=== PATIENT | male | born 1960 | race Caucasian/White ===

== ENCOUNTER 2020-12-19 11:05 | Observation (INO) | payer MEDICARE ==
[2020-12-19] MEDS ORDERED: BABY ASPIRIN 81 MG CHEW PO ONE (11:17)
[2020-12-19] MEDS ORDERED: NITRO-BID 2% UD PACKETS TOP ONE (11:18)
[2020-12-19] MEDS ORDERED: NITRO-BID 2% UD PACKETS ONE (11:23)
[2020-12-19 11:34] LABS: Absolute Neutrophil Ct (ANC) 4.83 (1.4-6.9); BASOPHIL % 0.3 % (0.0-0.4); Basophil (Absolute #) 0.03 (0-0.4); Eosinophil % 5.5 % (0.00-5.0); Eosinophil (Absolute #) 0.48 (0-0.5); Hematocrit 47.5 % (42-50); Hemoglobin 16.2 gm/dl (12.5-18.0); Lymphocyte (Absolute #) 2.33 (1.0-4.6); Lymphocytes % 26.7 % (24.0-44.0); Mean Cell Volume 85.1 fl (78-100); Mean Corpuscular Hgb Concent. 34.1 g/dl (32-36); Mean Platelet Volume 9.8 fl (7.5-11.0); Monocyte (Absolute #) 1.07 (0.0-1.3); Monocytes % 12.2 % (0.0-12.0); Neutrophil % 55.3 % (36.0-66.0); Platelet Count 246 K/mm3 (150-450); Red Blood Count 5.58 M/mm3 (4.1-5.6); Red Cell Distribution Width 13.7 % (11.5-14.0); White Blood Count 8.7 K/mm3 (4.0-10.5)
--- NOTE | 2020-12-19 11:39 | XRAY ---
Indication: Short of breath. Comparison: None Portable apical lordotic chest demonstrates normal heart and lungs. Bony thorax intact with mild degenerative changes.
[2020-12-19 12:05] LABS: ALBUMIN 4.5 g/dL (3.5-5.0); ALKALINE PHOSPHATASE 122 U/L (38-126); ANION GAP 13.3 MEQ/L (5-15); BLOOD UREA NITROGEN 21 mg/dL (9-20); CHLORIDE 104 mmol/L (98-107); Calcium 9.3 mg/dL (8.4-10.2); Carbon Dioxide 26 mmol/L (22-30); Creatinine 1 0.83 mg/dL (0.66-1.25); EST GLOMERULAR FILTRATION RATE > 60.0 ML/MIN; Glucose 110 mg/dL (74-106); Potassium 4.2 mmol/L (3.5-5.1); SGOT/AST 86 U/L (17-59); SGPT/ALT 95 U/L (0-50); SODIUM 139 mmol/L (137-145); Total Protein 7.4 g/dL (6.3-8.2)
--- NOTE | 2020-12-19 13:05 | ERPHSYRPT ---
- History of Present Illness Time Seen by Provider: 12/19/20 11:24 Historian: patient Exam Limitations: no limitations Patient Subjective Stated Complaint: Pt states "I went to pain management for the first time and they sent me here. My blood pressure is up and my chest is tight. I have also been sweaty." Triage Nursing Assessment: Pt presented alert and oriented X 3, skin pink, warm, diaphoretic. PT in no apparent respiratory distress. Pt resting comfortably on the bed. Physician History: 60 years old male with history of hypertension, chronic pain syndrome, hypothyroidism is sent in the ER from pain clinic for elevated blood pressure and chest tightness/pressure. Patient report he has a fist-like tightness feeling in the center of the chest for the last couple of weeks which comes and goes without any significant aggravating or relieving factors. Denies any associated palpitations or shortness of breath. Does not have any cardiac work- up done in the past. Timing/Duration: week(s) (2), intermittent, gradual onset, worse Activities at Onset: rest Quality: fullness, pressure Location: central Chest Pain Radiation: no radiation Severity of Pain-Max: moderate Severity of Pain-Current: moderate Modifying Factors: Improves With: nothing Associated Symptoms: denies symptoms Prior Chest Pain/Cardiac Workup: no prior chest pain, no prior cardiac workup Nitro Today/Relief: no nitro taken today Aspirin Treatment Today: no aspirin today Allergies/Adverse Reactions: No Known Drug Allergies Allergy (Verified 12/19/20 11:22) Home Medications: AMITRIPTYLINE HCL 50 mg Tab [AMITRIPTYLINE HCL 50 mg Tablet] 50 mg PO HS 12/19/20 [History] Carbamazepine 300 mg PO BID 12/19/20 [History] Celecoxib 100 mg [celeBREX 100 MG] 100 mg PO BID 12/19/20 [History] Levothyroxine Sodium [Levothyroxine] 50 mcg PO DAILY 12/19/20 [History] Magnesium Oxide [Magnesium] 400 mg PO BID 12/19/20 [History] Metformin HCl 500 mg [Glucophage 500 MG] 500 mg PO DAILY 12/19/20 [History] Naproxen Sodium 220 mg PO BID 12/19/20 [History] Omeprazole 20 mg PO DAILY 12/19/20 [History] Tapentadol HCl [Nucynta] 100 mg PO TID 12/19/20 [History] Hx Tetanus, Diphtheria Vaccination/Date Given: No Hx Influenza Vaccination/Date Given: No Hx Pneumococcal Vaccination/Date Given: No Immunizations Up to Date: Yes Travel Risk - International Travel Have you traveled outside of the country in past 3 weeks: No - Coronavirus Screening Are you exhibiting any of the following symptoms?: No Close contact with a COVID-19 positive Pt in past 14-21 Days: No - Vaccine Status Have you recieved a Covid-19 vaccination: No - Review of Systems Constitutional: No Symptoms Eyes: No Symptoms Ears, Nose, & Throat: No Symptoms Respiratory: No Symptoms Cardiac: Chest Pain Abdominal/Gastrointestinal: No Symptoms Genitourinary Symptoms: No Symptoms Musculoskeletal: Arthralgias, Back Pain Skin: No Symptoms Neurological: No Symptoms Psychological: No Symptoms Endocrine: No Symptoms Hematologic/Lymphatic: No Symptoms Immunological/Allergic: No Symptoms - Past Medical History Pertinent Past Medical History: Yes Neurological History: Migraines ENT History: No Pertinent History Cardiac History: No Pertinent History Respiratory History: No Pertinent History Endocrine Medical History: Diabetes Type II, Hypothyroidism Musculoskeletal History: Arthritis GI Medical History: GERD History: No Pertinent History Psycho-Social History: Anxiety Male Reproductive Disorders: No Pertinent History - Past Surgical History Past Surgical History: Yes Other Surgical History: tonsils - Social History Smoking Status: Former smoker Exposure to second hand smoke: No Drug Use: none Patient Lives Alone: Yes - Nursing Vital Signs Nursing Vital Signs: Initial Vital Signs Temperature 97.4 F 12/19/20 11:08 Pulse Rate 85 12/19/20 11:08 Respiratory Rate 22 12/19/20 11:08 Blood Pressure 169/120 12/19/20 11:08 O2 Sat by Pulse Oximetry 96 12/19/20 11:08 Pain Scale Pain Intensity 6 - Physical Exam General Appearance: no apparent distress, alert Eye Exam: PERRL/EOMI, eyes nml inspection Ears, Nose, Throat Exam: normal ENT inspection, TMs normal, pharynx normal Neck Exam: normal inspection, non-tender, supple, full range of motion Respiratory Exam: normal breath sounds, lungs clear Cardiovascular Exam: regular rate/rhythm, normal heart sounds Gastrointestinal/Abdomen Exam: soft, normal bowel sounds, No tenderness Back Exam: normal inspection, normal range of motion Extremity Exam: normal inspection, normal range of motion Neurologic Exam: alert, oriented x 3, cooperative Skin Exam: normal color, warm SpO2 Interpretation: normal SpO2: 94 O2 Delivery: Room Air - Course EKG Interpreted by Me: RATE (80), Sinus Rhythm, NORMAL AXIS, NORMAL INTERVALS, NORMAL QRS, Other (Nonspecific T wave changes) Ordered Tests: Active Orders 24 hr Category Date Time Status Bedrest with BRP/BSC ROUTINE Activity 12/19/20 15:16 Active Up With Assistance ROUTINE Activity 12/19/20 15:16 Active Brand Development Manager STAT Care 12/19/20 11:20 Completed Code Status Order ROUTINE Care 12/19/20 15:16 Active EKG-ER Only STAT Care 12/19/20 11:18 Completed Fall Protocol Q1H Care 12/19/20 15:16 Active IV Care Q6H Care 12/19/20 15:16 Active IV Insertion STAT Care 12/19/20 11:18 Completed POCT Glucose Check QAM Care 12/19/20 15:[address] in Observation ROUTINE Care 12/19/20 15:16 Active Rodney Allen, Apply ROUTINE Care 12/19/20 15:16 Active Weight,Daily 0600 Care 12/19/20 15:16 Active Consistent Carbohydrate Diet 1800 Calorie Diet 12/19/20 Dinner Active CHEST 1 VIEW (PORTABLE) Stat Exams 12/19/20 11:18 Completed CBC W DIFF AM.LAB Lab 12/20/20 04:00 Ordered CBC W DIFF Stat Lab 12/19/20 11:15 Completed CMP AM.LAB Lab 12/20/20 04:00 Ordered CMP Stat Lab 12/19/20 11:15 Completed NT PRO BNP Stat Lab 12/19/20 11:15 Completed TROPONIN Q3H Lab 12/19/20 11:15 Completed TROPONIN Q3H Lab 12/19/20 14:32 Completed TROPONIN Q3H Lab 12/19/20 17:13 Completed TROPONIN Q3H Lab 12/19/20 20:08 Completed TROPONIN Q3H Lab 12/19/20 23:30 Completed Medication Summary Generic Name Dose Route Start Last Admin Trade Name Freq PRN Reason Stop Dose Admin Acetaminophen 650 mg 12/19/20 15:16 12/19/20 16:26 Tylenol 325 Mg PO 01/18/21 15:15 650 mg Q4H PRN PRN Administration PAIN AND/OR FEVER Amitriptyline HCl 50 mg 12/19/20 22:00 12/19/20 23:21 Amitriptyline Hcl 50 Mg Tablet PO 01/18/21 21:59 50 mg HS ADRIÁN Administration Carbamazepine 300 mg 12/19/20 22:00 12/19/20 23:20 Tegretol 200 Mg PO 01/18/21 21:59 300 mg BID ADRIÁN Administration Insulin Human Lispro 0 unit 12/19/20 15:16 Humalog SQ 01/18/21 15:15 UD PRN HYPERGLYCEMIA Levothyroxine Sodium 50 mcg 12/20/20 10:00 Synthroid 50 Mcg PO 01/19/21 09:59 DAILY ADRIÁN Magnesium Oxide 400 mg 12/19/20 22:00 12/19/20 23:21 Mag-Ox 400 PO 01/18/21 21:59 400 mg BID ADRIÁN Administration Morphine Sulfate 4 mg 12/19/20 15:16 12/19/20 23:28 Morphine Sulfate 4 Mg Inj IV 12/24/20 15:15 4 mg Q4H PRN PRN Administration PAIN Pantoprazole Sodium 40 mg 12/20/20 10:00 Protonix 40mg Tablet PO 01/19/21 09:59 DAILY ADRIÁN Patient Own Med ( 0 each 12/19/20 22:00 12/19/20 23:21 Nucynta) PO 01/18/21 21:59 Not Given TID ADRIÁN Tramadol HCl 100 mg 12/19/20 17:51 Ultram 50 Mg PO 01/18/21 17:50 QID PRN PRN PAIN Discontinued Medications Generic Name Dose Route Start Last Admin Trade Name Freq PRN Reason Stop Dose Admin Albuterol/Ipratropium 3 ml 12/19/20 15:16 Duoneb 0.5-3 Mg/3 Ml Neb IH 01/18/21 15:15 Q4HPRN PRN SHORTNESS OF BREATH/WHEEZING Aspirin 324 mg 12/19/20 11:17 12/19/20 11:25 Baby Aspirin 81 Mg Chew PO 12/19/20 11:18 324 mg STAT ONE Administration Nitroglycerin 1 gm 12/19/20 11:18 12/19/20 11:24 Nitro-Bid 2% Ud Packets TOP 12/19/20 11:19 1 gm STAT ONE Administration Nitroglycerin Confirm 12/19/20 11:23 Nitro-Bid 2% Ud Packets Administered 12/19/20 11:24 Dose 1 gm .ROUTE .STK-MED ONE Pantoprazole Sodium 40 mg 12/20/20 10:00 Protonix 40 Mg Iv IV 01/19/21 09:59 Q24H10 [facility] Lab/Rad Data: Laboratory Result Diagrams 12/19/20 11:15 12/19/20 11:15 Laboratory Results 12/19/20 12/19/20 12/19/20 Range/Units 14:32 13:12 11:15 WBC (4.0-10.5) K/mm3 RBC (4.1-5.6) M/mm3 Hgb (12.5-18.0) gm/dl Hct (42-50) % MCV (78-100) fl MCH (26-32) pg MCHC (32-36) g/dl RDW (11.5-14.0) % Plt Count (150-450) K/mm3 MPV (7.5-11.0) fl Gran % (36.0-66.0) % Eos # (Auto) (0-0.5) Absolute Lymphs (auto) (1.0-4.6) Absolute Monos (auto) (0.0-1.3) Lymphocytes % (24.0-44.0) % Monocytes % (0.0-12.0) % Eosinophils % (0.00-5.0) % Basophils % (0.0-0.4) % Absolute Granulocytes (1.4-6.9) Basophils # (0-0.4) Sodium (137-145) mmol/L Potassium (3.5-5.1) mmol/L Chloride (98-107) mmol/L Carbon Dioxide (22-30) mmol/L Anion Gap (5-15) MEQ/L BUN (9-20) mg/dL Creatinine (0.66-1.25) mg/dL Estimated GFR ML/MIN Glucose (74-106) mg/dL Calcium (8.4-10.2) mg/dL Total Bilirubin (0.2-1.3) mg/dL AST (17-59) U/L ALT (0-50) U/L Alkaline Phosphatase (38-126) U/L Troponin I < 0.012 < 0.012 (0.000-0.034) ng/mL NT-Pro-B Natriuret Pep (0-900) pg/mL Serum Total Protein (6.3-8.2) g/dL Albumin (3.5-5.0) g/dL SARS-CoV-2 (PCR) NEGATIVE (NEGATIVE) 12/19/20 12/19/20 Range/Units 11:15 11:15 WBC 8.7 (4.0-10.5) K/mm3 RBC 5.58 (4.1-5.6) M/mm3 Hgb 16.2 (12.5-18.0) gm/dl Hct 47.5 (42-50) % MCV 85.1 (78-100) fl MCH 29.0 (26-32) pg MCHC 34.1 (32-36) g/dl RDW 13.7 (11.5-14.0) % Plt Count 246 (150-450) K/mm3 MPV 9.8 (7.5-11.0) fl Gran % 55.3 (36.0-66.0) % Eos # (Auto) 0.48 (0-0.5) Absolute Lymphs (auto) 2.33 (1.0-4.6) Absolute Monos (auto) 1.07 (0.0-1.3) Lymphocytes % 26.7 (24.0-44.0) % Monocytes % 12.2 H (0.0-12.0) % Eosinophils % 5.5 H (0.00-5.0) % Basophils % 0.3 (0.0-0.4) % Absolute Granulocytes 4.83 (1.4-6.9) Basophils # 0.03 (0-0.4) Sodium 139 (137-145) mmol/L Potassium 4.2 (3.5-5.1) mmol/L Chloride 104 (98-107) mmol/L Carbon Dioxide 26 (22-30) mmol/L Anion Gap 13.3 (5-15) MEQ/L BUN 21 H (9-20) mg/dL Creatinine 0.83 (0.66-1.25) mg/dL Estimated GFR > 60.0 ML/MIN Glucose 110 H (74-106) mg/dL Calcium 9.3 (8.4-10.2) mg/dL Total Bilirubin 0.60 (0.2-1.3) mg/dL AST 86 H (17-59) U/L ALT 95 H (0-50) U/L Alkaline Phosphatase 122 (38-126) U/L Troponin I (0.000-0.034) ng/mL NT-Pro-B Natriuret Pep 58.0 (0-900) pg/mL Serum Total Protein 7.4 (6.3-8.2) g/dL Albumin 4.5 (3.5-5.0) g/dL SARS-CoV-2 (PCR) (NEGATIVE) - Progress Progress: improved, re-examined Air Movement: good Progress Note: 12/19/20 13:04 Patient is elevated blood pressure and chest pressure/tightness. Is given aspirin, Nitropaste, on reevaluation feeling mild improvement. EKG showed sinus rhythm with no acute ST elevations. Has some nonspecific T wave changes. Initial troponin are negative. Chest x-ray negative for any acute ca rdiopulmonary findings. With his 2-week history of off and on chest pain and elevated pressure and no cardiac work-up in the past, patient would be admitted for trending cardiac enzyme and rule out [place]. Discussed with Dr. Matamoros and patient is admitted. Blood Culture(s) Obtained: No Antibiotics given: No Discussed with : Janessa Will see patient in: hospital (observation) Counseled pt/family regarding: lab results, diagnosis, need for follow-up, rad results - Departure Departure Disposition: Observation Clinical Impression: Chest pain, rule out acute myocardial infarction Condition: Stable Critical Care Time: No
[2020-12-19] MEDS ORDERED: TYLENOL 325 MG PO PRN (15:16)
[2020-12-19] MEDS ORDERED: HUMALOG SQ PRN (15:16)
[2020-12-19] MEDS ORDERED: DUONEB 0.5-3 MG/3 ml Neb IH PRN (15:16)
[2020-12-19] MEDS ORDERED: MORPHINE SULFATE 4 MG INJ IV PRN (15:16)
[2020-12-19] MEDS: PATIENT OWN MEDICATION PO SCH ×2 (17:33→23:21)
[2020-12-19] MEDS ORDERED: ULTRAM 50 MG PO PRN (17:51)
[2020-12-19] MEDS ORDERED: TAPENTADOL HCL 100 MG PO SCH (22:00)
[2020-12-19] MEDS ORDERED: NON-FORMULARY ITEM (Magnesium Oxide [Magnesium] 400 MG) PO SCH (22:00)
[2020-12-19] MEDS ORDERED: MAG-OX 400 PO SCH (22:00)
[2020-12-19] MEDS ORDERED: Tegretol 200 MG PO SCH (22:00)
[2020-12-19] MEDS ORDERED: CARBAMAZEPINE 300 MG PO SCH (22:00)
[2020-12-20 04:53] LABS: Absolute Neutrophil Ct (ANC) 5.59 (1.4-6.9); BASOPHIL % 0.3 % (0.0-0.4); Basophil (Absolute #) 0.03 (0-0.4); Eosinophil % 5.7 % (0.00-5.0); Eosinophil (Absolute #) 0.53 (0-0.5); Hematocrit 45.2 % (42-50); Hemoglobin 15.4 gm/dl (12.5-18.0); Lymphocyte (Absolute #) 2.09 (1.0-4.6); Lymphocytes % 22.3 % (24.0-44.0); Mean Cell Volume 85.4 fl (78-100); Mean Corpuscular Hemoglobin 29.1 pg (26-32); Mean Corpuscular Hgb Concent. 34.1 g/dl (32-36); Mean Platelet Volume 9.7 fl (7.5-11.0); Monocyte (Absolute #) 1.12 (0.0-1.3); Neutrophil % 59.7 % (36.0-66.0); Platelet Count 220 K/mm3 (150-450); Red Blood Count 5.29 M/mm3 (4.1-5.6); Red Cell Distribution Width 13.6 % (11.5-14.0); White Blood Count 9.4 K/mm3 (4.0-10.5)
[2020-12-20 05:04] LABS: ALBUMIN 4.1 g/dL (3.5-5.0); ALKALINE PHOSPHATASE 99 U/L (38-126); ANION GAP 12.3 MEQ/L (5-15); BLOOD UREA NITROGEN 19 mg/dL (9-20); CHLORIDE 104 mmol/L (98-107); Carbon Dioxide 26 mmol/L (22-30); Creatinine 1 0.85 mg/dL (0.66-1.25); EST GLOMERULAR FILTRATION RATE > 60.0 ML/MIN; Glucose 114 mg/dL (74-106); Potassium 4.3 mmol/L (3.5-5.1); SGOT/AST 86 U/L (17-59); SGPT/ALT 92 U/L (0-50); SODIUM 138 mmol/L (137-145); Total Protein 6.8 g/dL (6.3-8.2)
[2020-12-20] MEDS ORDERED: ULTRAM 50 MG ONE (06:25)
[2020-12-20 07:03] VITALS: BP 129/76; PULSE 81; O2SAT 95
--- NOTE | 2020-12-20 09:03 | PCM.SSS ---
History of Present Illness - Chief Complaint Chief Complaint: Chest pain rule out acute IA History of Present Illness: is a 60 year old male pt of Geovany Lawson in [facility] with chronic back pain and obesity who was admitted through ER with chest pain to r/o IA. He had been in our pain management clinic and was found to have a very elevated blood pressure (initial BP noted here 169/120) and was sent to ER. There he admitted to having chest heaviness, 3-4/10, with SOB and diaphoresis. Was also having DAHL and nausea; denied palpitations. His EKG was nonacute. Recently, over the past 2 weeks, he has been feeling a fist sized area of cramping substernally, 7/10, lasting 1 min, nonradiating, with diaphoresis (denies palpitations, SOB, or nausea). Also states that his L arm has been feeling at times "like an artery or vein is hard." He had a stress test ordered years ago that couldn't complete due to back pain. His troponins have been negative x 5. He had a random BS of 202, but denies any hx diabetes; his a1c is 5.38. He has been on metformin, he says for weight loss only. Has family hx of TIAs (mother) and "heart issues" (maternal uncle). Pt is a former smoker. Denies alcohol use. - Review of Systems Constitutional: Chills (intermittent) Abdominal/Gastrointestinal: Hematochezia (with wiping) Genitourinary Symptoms: Other (was having nocturia, has stopped with "merenga tea" - but having some possible hematuria.) Musculoskeletal: Back Pain (chronic) Neurological: Dizziness (slight lightheadedness recently when looking through binoculars), Headache Medications & Allergies Home Medications: Home Medication List AMITRIPTYLINE HCL 50 mg Tab [AMITRIPTYLINE HCL 50 mg Tablet] 50 mg PO HS 12/19/20 [History Confirmed 12/19/20] Carbamazepine 300 mg PO BID 12/19/20 [History Confirmed 12/19/20] Levothyroxine Sodium [Levothyroxine] 50 mcg PO DAILY 12/19/20 [History Confirmed 12/19/20] Magnesium Oxide [Magnesium] 400 mg PO BID 12/19/20 [History Confirmed 12/19/20] Metformin HCl 500 mg [Glucophage 500 MG] 500 mg PO DAILY 12/19/20 [History Confirmed 12/19/20] Omeprazole 20 mg PO DAILY 12/19/20 [History Confirmed 12/19/20] Tapentadol HCl [Nucynta] 100 mg PO TID 12/19/20 [History Confirmed 12/19/20] Allergies/Adverse Reactions: Allergies Allergy/AdvReac Type Severity Reaction Status Date / Time No Known Drug Allergies Allergy Verified 12/19/20 11:22 - Past Medical History Past Medical History: Yes Neurological History: Migraines ENT History: No Pertinent History Cardiac History: No Pertinent History Respiratory History: No Pertinent History Endocrine Medical History: Diabetes Type II, Hypothyroidism Musculoskelatal History: Arthritis GI Medical History: GERD History: No Pertinent History Pyscho-Social History: Anxiety Male Reproductive Disorders: No Pertinent History Comment: king's esoph; renal calculus; CFS and fibro; TMJ; trigeminal neuralgia - Past Surgical History Past Surgical History: Yes Other Surgical History: tonsils - Social History Smoking Status: Former smoker Exposure to second hand smoke: No Alcohol: None Drug Use: none - Physical Exam Vital Signs: Vital Signs - 24 hr Temp Pulse Resp BP Pulse Ox 12/20/20 07:02 96.9 F 81 18 129/76 95 12/20/20 04:00 97.2 F 78 20 135/74 93 L 12/20/20 01:06 94 L 12/20/20 00:00 98.4 F 79 20 137/92 98 12/19/20 20:00 97.7 F 86 19 126/75 93 L 12/19/20 16:02 96.8 F 75 20 151/89 96 12/19/20 16:00 96.7 F 68 18 107/66 96 12/19/20 15:00 96.8 F 75 20 151/89 96 12/19/20 14:11 86 14 134/89 100 12/19/20 13:24 82 21 136/98 98 12/19/20 12:13 78 18 133/87 94 L 12/19/20 11:08 97.4 F 85 22 169/120 96 General Appearance: no apparent distress, alert, obese Neurologic Exam: oriented x 3, cooperative Eye Exam: eyes nml inspection Ears, Nose, Throat Exam: moist mucous membranes Neck Exam: normal inspection, non-tender, No lymphadenopathy Respiratory Exam: normal breath sounds, No crackles/rales, No rhonchi, No wheezing Cardiovascular Exam: regular rate/rhythm, normal heart sounds, No murmur Gastrointestinal/Abdomen Exam: soft, normal bowel sounds, distention, No tenderness, No mass, No guarding, No rebound Back Exam: normal inspection, No CVA tenderness, No rash Extremity Exam: normal inspection, No pedal edema, No swelling Skin Exam: normal color, warm, dry, No rash Results - Labs Lab/Micro Results: Lab Results-Last 24 Hours 12/19/20 12/19/20 12/19/20 Range/Units 11:15 11:15 11:15 WBC 8.7 (4.0-10.5) K/mm3 RBC 5.58 (4.1-5.6) M/mm3 Hgb 16.2 (12.5-18.0) gm/dl Hct 47.5 (42-50) % MCV 85.1 (78-100) fl MCH 29.0 (26-32) pg MCHC 34.1 (32-36) g/dl RDW 13.7 (11.5-14.0) % Plt Count 246 (150-450) K/mm3 MPV 9.8 (7.5-11.0) fl Gran % 55.3 (36.0-66.0) % Eos # (Auto) 0.48 (0-0.5) Absolute Lymphs (auto) 2.33 (1.0-4.6) Absolute Monos (auto) 1.07 (0.0-1.3) Lymphocytes % 26.7 (24.0-44.0) % Monocytes % 12.2 H (0.0-12.0) % Eosinophils % 5.5 H (0.00-5.0) % Basophils % 0.3 (0.0-0.4) % Absolute Granulocytes 4.83 (1.4-6.9) Basophils # 0.03 (0-0.4) Sodium 139 (137-145) mmol/L Potassium 4.2 (3.5-5.1) mmol/L Chloride 104 (98-107) mmol/L Carbon Dioxide 26 (22-30) mmol/L Anion Gap 13.3 (5-15) MEQ/L BUN 21 H (9-20) mg/dL Creatinine 0.83 (0.66-1.25) mg/dL Estimated GFR > 60.0 ML/MIN Glucose 110 H (74-106) mg/dL POC Glucometer (74 to 106) mg/dL Hemoglobin A1c (4.5-6.0) % Calcium 9.3 (8.4-10.2) mg/dL Total Bilirubin 0.60 (0.2-1.3) mg/dL AST 86 H (17-59) U/L ALT 95 H (0-50) U/L Alkaline Phosphatase 122 (38-126) U/L Troponin I < 0.012 (0.000-0.034) ng/mL NT-Pro-B Natriuret Pep 58.0 (0-900) pg/mL Serum Total Protein 7.4 (6.3-8.2) g/dL Albumin 4.5 (3.5-5.0) g/dL SARS-CoV-2 (PCR) (NEGATIVE) 12/19/20 12/19/20 12/19/20 Range/Units 13:12 14:32 16:48 WBC (4.0-10.5) K/mm3 RBC (4.1-5.6) M/mm3 Hgb (12.5-18.0) gm/dl Hct (42-50) % MCV (78-100) fl MCH (26-32) pg MCHC (32-36) g/dl RDW (11.5-14.0) % Plt Count (150-450) K/mm3 MPV (7.5-11.0) fl Gran % (36.0-66.0) % Eos # (Auto) (0-0.5) Absolute Lymphs (auto) (1.0-4.6) Absolute Monos (auto) (0.0-1.3) Lymphocytes % (24.0-44.0) % Monocytes % (0.0-12.0) % Eosinophils % (0.00-5.0) % Basophils % (0.0-0.4) % Absolute Granulocytes (1.4-6.9) Basophils # (0-0.4) Sodium (137-145) mmol/L Potassium (3.5-5.1) mmol/L Chloride (98-107) mmol/L Carbon Dioxide (22-30) mmol/L Anion Gap (5-15) MEQ/L BUN (9-20) mg/dL Creatinine (0.66-1.25) mg/dL Estimated GFR ML/MIN Glucose (74-106) mg/dL POC Glucometer 202 H (74 to 106) mg/dL Hemoglobin A1c (4.5-6.0) % Calcium (8.4-10.2) mg/dL Total Bilirubin (0.2-1.3) mg/dL AST (17-59) U/L ALT (0-50) U/L Alkaline Phosphatase (38-126) U/L Troponin I < 0.012 (0.000-0.034) ng/mL NT-Pro-B Natriuret Pep (0-900) pg/mL Serum Total Protein (6.3-8.2) g/dL Albumin (3.5-5.0) g/dL SARS-CoV-2 (PCR) NEGATIVE (NEGATIVE) 12/19/20 12/19/20 12/19/20 Range/Units 17:00 17:13 20:08 WBC (4.0-10.5) K/mm3 RBC (4.1-5.6) M/mm3 Hgb (12.5-18.0) gm/dl Hct (42-50) % MCV (78-100) fl MCH (26-32) pg MCHC (32-36) g/dl RDW (11.5-14.0) % Plt Count (150-450) K/mm3 MPV (7.5-11.0) fl Gran % (36.0-66.0) % Eos # (Auto) (0-0.5) Absolute Lymphs (auto) (1.0-4.6) Absolute Monos (auto) (0.0-1.3) Lymphocytes % (24.0-44.0) % Monocytes % (0.0-12.0) % Eosinophils % (0.00-5.0) % Basophils % (0.0-0.4) % Absolute Granulocytes (1.4-6.9) Basophils # (0-0.4) Sodium (137-145) mmol/L Potassium (3.5-5.1) mmol/L Chloride (98-107) mmol/L Carbon Dioxide (22-30) mmol/L Anion Gap (5-15) MEQ/L BUN (9-20) mg/dL Creatinine (0.66-1.25) mg/dL Estimated GFR ML/MIN Glucose (74-106) mg/dL POC Glucometer (74 to 106) mg/dL Hemoglobin A1c 5.38 (4.5-6.0) % Calcium (8.4-10.2) mg/dL Total Bilirubin (0.2-1.3) mg/dL AST (17-59) U/L ALT (0-50) U/L Alkaline Phosphatase (38-126) U/L Troponin I < 0.012 < 0.012 (0.000-0.034) ng/mL NT-Pro-B Natriuret Pep (0-900) pg/mL Serum Total Protein (6.3-8.2) g/dL Albumin (3.5-5.0) g/dL SARS-CoV-2 (PCR) (NEGATIVE) 12/19/20 12/20/20 12/20/20 Range/Units 23:30 04:45 04:45 WBC 9.4 (4.0-10.5) K/mm3 RBC 5.29 (4.1-5.6) M/mm3 Hgb 15.4 (12.5-18.0) gm/dl Hct 45.2 (42-50) % MCV 85.4 (78-100) fl MCH 29.1 (26-32) pg MCHC 34.1 (32-36) g/dl RDW 13.6 (11.5-14.0) % Plt Count 220 (150-450) K/mm3 MPV 9.7 (7.5-11.0) fl Gran % 59.7 (36.0-66.0) % Eos # (Auto) 0.53 H (0-0.5) Absolute Lymphs (auto) 2.09 (1.0-4.6) Absolute Monos (auto) 1.12 (0.0-1.3) Lymphocytes % 22.3 L (24.0-44.0) % Monocytes % 12.0 (0.0-12.0) % Eosinophils % 5.7 H (0.00-5.0) % Basophils % 0.3 (0.0-0.4) % Absolute Granulocytes 5.59 (1.4-6.9) Basophils # 0.03 (0-0.4) Sodium 138 (137-145) mmol/L Potassium 4.3 (3.5-5.1) mmol/L Chloride 104 (98-107) mmol/L Carbon Dioxide 26 (22-30) mmol/L Anion Gap 12.3 (5-15) MEQ/L BUN 19 (9-20) mg/dL Creatinine 0.85 (0.66-1.25) mg/dL Estimated GFR > 60.0 ML/MIN Glucose 114 H (74-106) mg/dL POC Glucometer (74 to 106) mg/dL Hemoglobin A1c (4.5-6.0) % Calcium 9.0 (8.4-10.2) mg/dL Total Bilirubin 0.90 (0.2-1.3) mg/dL AST 86 H (17-59) U/L ALT 92 H (0-50) U/L Alkaline Phosphatase 99 (38-126) U/L Troponin I < 0.012 (0.000-0.034) ng/mL NT-Pro-B Natriuret Pep (0-900) pg/mL Serum Total Protein 6.8 (6.3-8.2) g/dL Albumin 4.1 (3.5-5.0) g/dL SARS-CoV-2 (PCR) (NEGATIVE) - Radiology Impressions Radiology Exams & Impressions: Radiology Procedures Category Date Time Status CHEST 1 VIEW (PORTABLE) Stat Exams 12/19/20 11:18 Completed - Other Procedures and Tests Respiratory Therapy 12/19/20 20:05 BiPap/CPAP ROUTINE Assessment/Plan (1) Chest pain, rule out acute myocardial infarction Current Visit: Yes Status: Resolved Assessment & Plan: IA ruled out, but pt will need outpatient cardiolyte lexiscan. Code(s): R07.9 - CHEST PAIN, UNSPECIFIED (2) Hypertension Current Visit: Yes Status: Acute Qualifiers: Hypertension type: essential hypertension Qualified Code(s): I10 - Essential (primary) hypertension Assessment & Plan: BP down from admission. F/u with PCP. Code(s): I10 - ESSENTIAL (PRIMARY) HYPERTENSION (3) Hematochezia Current Visit: Yes Status: Chronic Assessment & Plan: May need colonoscopy - f/u with PCP. Code(s): K92.1 - MELENA (4) Hematuria Current Visit: Yes Status: Chronic Qualifiers: Hematuria type: gross Qualified Code(s): R31.0 - Gross hematuria Assessment & Plan: Possibly - checking UA here. Will need to f/u with PCP. Code(s): R31.9 - HEMATURIA, UNSPECIFIED (5) Hyperglycemia Current Visit: Yes Status: Chronic Assessment & Plan: Explained to pt that a random glucose >200 is typically diagnostic of DM, but h is a1c is normal. However, he has been on metformin. I explained that it may take 5-10 years for diabetes to declare itself. He is to f/u with PCP, thank you. Code(s): R73.9 - HYPERGLYCEMIA, UNSPECIFIED Hospital Summary - Hospital Course Hospital Course: Pt admitted for CP, IA ruled out. He will need to f/u with outpatient stress test with PCP in [place]. Should also f/u about the odd sensations in his L arm. Also, he did have one elevated BS and will need surveillance for diabetes moving forward. He also c/o bright red blood per rectum when he wipes; this will need followup as well. He has been taking a tea supplement that he thinks is causing red urine; I have advised him to talk to the pharmacist about this in light of his current meds, and his urine wi - Vitals & Intake/Output Vital Signs: Vital Signs Temperature 96.9 F 12/20/20 07:02 Pulse Rate 81 12/20/20 07:02 Respiratory Rate 18 12/20/20 07:02 Blood Pressure 129/76 12/20/20 07:02 O2 Sat by Pulse Oximetry 95 12/20/20 07:02 Intake & Output: Intake & Output 12/17/20 12/18/20 12/19/20 12/20/20 11:59 11:59 11:59 11:59 Intake Total 720 Balance 720 Weight 125.191 kg 122.8 kg - Lab Result Diagrams: 12/20/20 04:45 12/20/20 04:45 Lab Results-Last 24 Hrs: Lab Results-Last 24 Hours 12/19/20 12/19/20 12/19/20 Range/Units 11:15 11:15 11:15 WBC 8.7 (4.0-10.5) K/mm3 RBC 5.58 (4.1-5.6) M/mm3 Hgb 16.2 (12.5-18.0) gm/dl Hct 47.5 (42-50) % MCV 85.1 (78-100) fl MCH 29.0 (26-32) pg MCHC 34.1 (32-36) g/dl RDW 13.7 (11.5-14.0) % Plt Count 246 (150-450) K/mm3 MPV 9.8 (7.5-11.0) fl Gran % 55.3 (36.0-66.0) % Eos # (Auto) 0.48 (0-0.5) Absolute Lymphs (auto) 2.33 (1.0-4.6) Absolute Monos (auto) 1.07 (0.0-1.3) Lymphocytes % 26.7 (24.0-44.0) % Monocytes % 12.2 H (0.0-12.0) % Eosinophils % 5.5 H (0.00-5.0) % Basophils % 0.3 (0.0-0.4) % Absolute Granulocytes 4.83 (1.4-6.9) Basophils # 0.03 (0-0.4) Sodium 139 (137-145) mmol/L Potassium 4.2 (3.5-5.1) mmol/L Chloride 104 (98-107) mmol/L Carbon Dioxide 26 (22-30) mmol/L Anion Gap 13.3 (5-15) MEQ/L BUN 21 H (9-20) mg/dL Creatinine 0.83 (0.66-1.25) mg/dL Estimated GFR > 60.0 ML/MIN Glucose 110 H (74-106) mg/dL POC Glucometer (74 to 106) mg/dL Hemoglobin A1c (4.5-6.0) % Calcium 9.3 (8.4-10.2) mg/dL Total Bilirubin 0.60 (0.2-1.3) mg/dL AST 86 H (17-59) U/L ALT 95 H (0-50) U/L Alkaline Phosphatase 122 (38-126) U/L Troponin I < 0.012 (0.000-0.034) ng/mL NT-Pro-B Natriuret Pep 58.0 (0-900) pg/mL Serum Total Protein 7.4 (6.3-8.2) g/dL Albumin 4.5 (3.5-5.0) g/dL SARS-CoV-2 (PCR) (NEGATIVE) 12/19/20 12/19/20 12/19/20 Range/Units 13:12 14:32 16:48 WBC (4.0-10.5) K/mm3 RBC (4.1-5.6) M/mm3 Hgb (12.5-18.0) gm/dl Hct (42-50) % MCV (78-100) fl MCH (26-32) pg MCHC (32-36) g/dl RDW (11.5-14.0) % Plt Count (150-450) K/mm3 MPV (7.5-11.0) fl Gran % (36.0-66.0) % Eos # (Auto) (0-0.5) Absolute Lymphs (auto) (1.0-4.6) Absolute Monos (auto) (0.0-1.3) Lymphocytes % (24.0-44.0) % Monocytes % (0.0-12.0) % Eosinophils % (0.00-5.0) % Basophils % (0.0-0.4) % Absolute Granulocytes (1.4-6.9) Basophils # (0-0.4) Sodium (137-145) mmol/L Potassium (3.5-5.1) mmol/L Chloride (98-107) mmol/L Carbon Dioxide (22-30) mmol/L Anion Gap (5-15) MEQ/L BUN (9-20) mg/dL Creatinine (0.66-1.25) mg/dL Estimated GFR ML/MIN Glucose (74-106) mg/dL POC Glucometer 202 H (74 to 106) mg/dL Hemoglobin A1c (4.5-6.0) % Calcium (8.4-10.2) mg/dL Total Bilirubin (0.2-1.3) mg/dL AST (17-59) U/L ALT (0-50) U/L Alkaline Phosphatase (38-126) U/L Troponin I < 0.012 (0.000-0.034) ng/mL NT-Pro-B Natriuret Pep (0-900) pg/mL Serum Total Protein (6.3-8.2) g/dL Albumin (3.5-5.0) g/dL SARS-CoV-2 (PCR) NEGATIVE (NEGATIVE) 12/19/20 12/19/20 12/19/20 Range/Units 17:00 17:13 20:08 WBC (4.0-10.5) K/mm3 RBC (4.1-5.6) M/mm3 Hgb (12.5-18.0) gm/dl Hct (42-50) % MCV (78-100) fl MCH (26-32) pg MCHC (32-36) g/dl RDW (11.5-14.0) % Plt Count (150-450) K/mm3 MPV (7.5-11.0) fl Gran % (36.0-66.0) % Eos # (Auto) (0-0.5) Absolute Lymphs (auto) (1.0-4.6) Absolute Monos (auto) (0.0-1.3) Lymphocytes % (24.0-44.0) % Monocytes % (0.0-12.0) % Eosinophils % (0.00-5.0) % Basophils % (0.0-0.4) % Absolute Granulocytes (1.4-6.9) Basophils # (0-0.4) Sodium (137-145) mmol/L Potassium (3.5-5.1) mmol/L Chloride (98-107) mmol/L Carbon Dioxide (22-30) mmol/L Anion Gap (5-15) MEQ/L BUN (9-20) mg/dL Creatinine (0.66-1.25) mg/dL Estimated GFR ML/MIN Glucose (74-106) mg/dL POC Glucometer (74 to 106) mg/dL Hemoglobin A1c 5.38 (4.5-6.0) % Calcium (8.4-10.2) mg/dL Total Bilirubin (0.2-1.3) mg/dL AST (17-59) U/L ALT (0-50) U/L Alkaline Phosphatase (38-126) U/L Troponin I < 0.012 < 0.012 (0.000-0.034) ng/mL NT-Pro-B Natriuret Pep (0-900) pg/mL Serum Total Protein (6.3-8.2) g/dL Albumin (3.5-5.0) g/dL SARS-CoV-2 (PCR) (NEGATIVE) 12/19/20 12/20/20 12/20/20 Range/Units 23:30 04:45 04:45 WBC 9.4 (4.0-10.5) K/mm3 RBC 5.29 (4.1-5.6) M/mm3 Hgb 15.4 (12.5-18.0) gm/dl Hct 45.2 (42-50) % MCV 85.4 (78-100) fl MCH 29.1 (26-32) pg MCHC 34.1 (32-36) g/dl RDW 13.6 (11.5-14.0) % Plt Count 220 (150-450) K/mm3 MPV 9.7 (7.5-11.0) fl Gran % 59.7 (36.0-66.0) % Eos # (Auto) 0.53 H (0-0.5) Absolute Lymphs (auto) 2.09 (1.0-4.6) Absolute Monos (auto) 1.12 (0.0-1.3) Lymphocytes % 22.3 L (24.0-44.0) % Monocytes % 12.0 (0.0-12.0) % Eosinophils % 5.7 H (0.00-5.0) % Basophils % 0.3 (0.0-0.4) % Absolute Granulocytes 5.59 (1.4-6.9) Basophils # 0.03 (0-0.4) Sodium 138 (137-145) mmol/L Potassium 4.3 (3.5-5.1) mmol/L Chloride 104 (98-107) mmol/L Carbon Dioxide 26 (22-30) mmol/L Anion Gap 12.3 (5-15) MEQ/L BUN 19 (9-20) mg/dL Creatinine 0.85 (0.66-1.25) mg/dL Estimated GFR > 60.0 ML/MIN Glucose 114 H (74-106) mg/dL POC Glucometer (74 to 106) mg/dL Hemoglobin A1c (4.5-6.0) % Calcium 9.0 (8.4-10.2) mg/dL Total Bilirubin 0.90 (0.2-1.3) mg/dL AST 86 H (17-59) U/L ALT 92 H (0-50) U/L Alkaline Phosphatase 99 (38-126) U/L Troponin I < 0.012 (0.000-0.034) ng/mL NT-Pro-B Natriuret Pep (0-900) pg/mL Serum Total Protein 6.8 (6.3-8.2) g/dL Albumin 4.1 (3.5-5.0) g/dL SARS-CoV-2 (PCR) (NEGATIVE) - Radiology Exams Ordered Rad Exams-Entire Visit: Radiology Procedures Category Date Time Status CHEST 1 VIEW (PORTABLE) Stat Exams 12/19/20 11:18 Completed - Procedures and Test Procedures and Tests throughout Hospitalization: Therapy Orders & Screens 12/19/20 20:05 BiPap/CPAP ROUTINE Comment: Diagnosis: Chest pain rule out acute IA - Discharge Disposition: Home, Self-Care Condition: Stable Prescriptions: Continue Omeprazole 20 mg PO DAILY Carbamazepine 300 mg PO BID Tapentadol HCl [Nucynta] 100 mg PO TID AMITRIPTYLINE HCL 50 mg Tab [AMITRIPTYLINE HCL 50 mg Tablet] 50 mg PO HS Metformin HCl 500 mg [Glucophage 500 MG] 500 mg PO DAILY Magnesium Oxide [Magnesium] 400 mg PO BID Levothyroxine Sodium [Levothyroxine] 50 mcg PO DAILY Discontinued Celecoxib 100 mg [celeBREX 100 MG] 100 mg PO BID Naproxen Sodium 220 mg PO BID Follow up with: GEOVANY DILL NP [Primary Care Provider] -
[2020-12-20] MEDS ORDERED: NON-FORMULARY ITEM (Omeprazole [Omeprazole] 20 MG) PO SCH (10:00)
[2020-12-20] MEDS ORDERED: Protonix 40MG Tablet PO SCH (10:00)
[2020-12-20] MEDS ORDERED: SYNTHROID 50 MCG PO SCH (10:00)
[2020-12-20] MEDS ORDERED: PROTONIX 40 MG IV IV SCH (10:00)
[2020-12-20] MEDS ORDERED: NON-FORMULARY ITEM (Levothyroxine Sodium [Levothyroxine] 50 MCG) PO SCH (10:00)
== END 2020-12-20 10:09 | disposition home or self-care (01) ==
LOC: ED 11:05 → MED SURG 15:08
PROVIDERS: ADMIT Family Medicine; ATTEND Family Medicine
DX: R07.9 Chest pain, unspecified (principal); R51.9 Headache, unspecified; R11.0 Nausea; R42 Dizziness and giddiness; R73.9 Hyperglycemia, unspecified; K92.1 Melena; Z79.899 Other long term (current) drug therapy; E03.9 Hypothyroidism, unspecified; I10 Essential (primary) hypertension; R31.9 Hematuria, unspecified; Z20.828 Contact with and (suspected) exposure to other viral communicable diseases; M54.9 Dorsalgia, unspecified
CPT/HCPCS: 36000; 36415; 71045; 80053; 82947; 83036; 83880; 84484; 85025; 93005; 93041; 94660; 99285; U0003; 93268; J2270; A9270-GY; G0378